=== PATIENT | male | born 1965 | race Caucasian/White ===

== ENCOUNTER → 2020-09-21 | Outpatient (CLI) | payer OTHER ==
[~2020-09-21] MED LIST: CARAFATE1 GM PO; FENOFIBRATE160 MG PO; HYDRALAZINE HC100 MG PO; HYDROCODON-ACE1 EAC6 PO; LISINOPRIL20 MG PO; MAG-OX 400 TAB400 MG PO; PROAIR HFA8.5 GM INH; PROTONIX 40 MG40 M1 PO; VITAMIN B-121000 MC3 PO; VITAMIN D 40400 UNIT PO; VITAMIN D350 MC3 PO
== END ==
LOC: KOH-I 09-20 11:30
DX: F17.210 Nicotine dependence, cigarettes, uncomplicated (principal)
CPT/HCPCS: 71271

== ENCOUNTER 2021-08-23 00:42 | Observation (INO) | payer BC, OTHER ==
[~2021-08-23] VITALS: Ht 188 cm; Wt 92.1 kg
[2021-08-23 01:39] LABS: HEMOGLOBIN 14.7 gm/dl (14.0-17.5); RED BLOOD COUNT 4.66 M/UL (4.20-5.50); WHITE BLOOD COUNT 10.9 K/UL (4.5-11.0)
[2021-08-23 02:07] LABS: BUN/CREATININE RATIO 15 (0-10)
[2021-08-23] MEDS ORDERED: POTASSIUM CHLO10 MEQ PO (11:18)
[2021-08-24 06:25] LABS: HEMOGLOBIN 13.1 gm/dl (14.0-17.5); RED BLOOD COUNT 4.21 M/UL (4.20-5.50)
[2021-08-24 06:27] LABS: WHITE BLOOD COUNT 6.2 K/UL (4.5-11.0)
[2021-08-24 06:41] LABS: BUN/CREATININE RATIO 13 (0-10)
[2021-08-24] MEDS ORDERED: ISOSORBIDE MONO30 MG PO (14:33)
[2021-08-24] MEDS ORDERED: NITROGLYCERIN0.4 MG SL (14:33)
[2021-08-24] MEDS ORDERED: ATORVASTATIN CA10 MG PO (14:33)
== END 2021-08-24 16:26 | disposition home or self-care (01) ==
LOC: ER1 00:42 → CDU 05:44 → MED SURG 4 05:44
PROVIDERS: Internal Medicine; Student in an Organized Health Care Education/Training Program; ADMIT Internal Medicine
DX: R07.89 Other chest pain (principal); E87.6 Hypokalemia; I11.9 Hypertensive heart disease without heart failure; E78.5 Hyperlipidemia, unspecified; F17.210 Nicotine dependence, cigarettes, uncomplicated; E55.9 Vitamin D deficiency, unspecified; M51.36 Other intervertebral disc degeneration, lumbar region; Z79.899 Other long term (current) drug therapy
CPT/HCPCS: 36415; 71045; 78452; 80048; 80053; 80061; 82550; 82553; 83735; 84484; 85025; 85027; 93005; 93017; 96372; 99285; A9502; G0378; J1650

== ENCOUNTER 2021-08-28 11:32 | Observation (INO) | payer BC, OTHER ==
[~2021-08-28] VITALS: Ht 185.4 cm; Wt 88.5 kg
[~2021-08-28 11:32] MED LIST changes: +ATORVASTATIN CA10 MG PO; +ISOSORBIDE MONO30 MG PO; +NITROGLYCERIN0.4 MG SL; +POTASSIUM CHLO10 MEQ PO
[2021-08-28 12:20] LABS: HEMOGLOBIN 14.6 gm/dl (14.0-17.5); RED BLOOD COUNT 4.8 M/UL (4.20-5.50); WHITE BLOOD COUNT 13.2 K/UL (4.5-11.0)
[2021-08-28 12:45] LABS: BUN/CREATININE RATIO 13 (0-10)
[2021-08-28] MEDS ORDERED: HYDROCODON-ACE1 EAC6 PO (18:28)
[2021-08-29 07:26] LABS: HEMOGLOBIN 12.7 gm/dl (14.0-17.5)
[2021-08-29 07:31] LABS: RED BLOOD COUNT 4.2 M/UL (4.20-5.50)
[2021-08-29 07:59] LABS: BUN/CREATININE RATIO 12 (0-10)
== END 2021-08-29 11:53 | disposition home or self-care (01) ==
LOC: ER1 11:32 → CCU 13:47 → CDU 13:47 → CCU 17:53
PROVIDERS: Nurse Practitioner; Physician Assistant Medical; ADMIT Internal Medicine Infectious Disease
PROC: B2111ZZ Fluoroscopy of Multiple Coronary Arteries using Low Osmolar Contrast (ICD-10-PCS; principal; 2021-08-28)
DX: I25.110 Atherosclerotic heart disease of native coronary artery with unstable angina pectoris (principal); I10 Essential (primary) hypertension; E78.5 Hyperlipidemia, unspecified; E55.9 Vitamin D deficiency, unspecified; M51.36 Other intervertebral disc degeneration, lumbar region; E83.39 Other disorders of phosphorus metabolism; D64.9 Anemia, unspecified; K21.9 Gastro-esophageal reflux disease without esophagitis; F17.210 Nicotine dependence, cigarettes, uncomplicated; I25.2 Old myocardial infarction; Z79.899 Other long term (current) drug therapy
CPT/HCPCS: 36415; 71045; 80048; 80053; 80307; 81001; 82550; 82553; 83735; 83880; 84100; 84484; 85025; 85027; 85379; 93005; 99152; 99153; 99285; C1769; C1887; C1894; G0378; J1644; J2250; J3010; J7040; Q9967